=== PATIENT | male | born 1950 | race Caucasian/White ===

== ENCOUNTER → 2021-05-01 | Outpatient (CLI) | payer MEDICARE ==
[~2021-05-01] MED LIST: LIPITOR10 MG PO; LISINOPRIL-HCT1 EAC2 PO; LISINOPRIL-HCT1 EACH; LISINOPRIL-HCTZ PO
== END ==
LOC: RAD 12:12
PROVIDERS: ATTEND Internal Medicine Pulmonary Disease
DX: R06.02 Shortness of breath (principal)
CPT/HCPCS: 71046